=== PATIENT | female | born 1940 | race African-American/Black ===

== ENCOUNTER 2017-01-19 01:26 | Inpatient (IN) | payer OTHER ==
--- NOTE | 2017-01-03 14:36 | History & Physical Pre-Op ---
General Information and HPI MD Statement: I have seen and personally examined MARINA JI and documented this H&P. The patient is a 76 year old F who presented with a patient stated chief complaint of neck pain. Source of Information: patient, old records Exam Limitations: no limitations History of Present Illness: Marina is a 76-year-old female who is complaining of neck pain with associated dizziness and visual changes. She is status post anterior cervical decompression fusion at C5-6 in August,. Marina was doing extremely well until the last several months when she has had progressively worsening neck pain which is worse when laying down and going from a lying to a sitting position. There has been no injury or precipitating event. She denies any radiating arm pain, numbness/tingling, or weakness in her upper extremities. She also denies any dysphagia. She does occasionally experience numbness in her feet but has attributed this to her lumbar surgery. Marina does rate her pain as an intermittent 7/[address] scan shows a solid fusion at C5-6. She does have some minor degenerative changes at the adjacent levels above and below her fusion. Because of Marina's progressively worsening neck pain, she wants nothing more to do with nonsurgical treatment and would like to proceed with an inspection of her fusion with removal of hardware and possible revision anterior cervical decompression fusion at C5-6 with instrumentation and iliac crest bone grafting on 01/19/2017. Allergies/Medications Allergies: Uncoded Allergies: vinegar (elevated blood pressure 01/03/17) Home Med list Aspirin ([place] Aspirin) 81 MG TABLET.DR [address] [facility] (Reported ) Atenolol 25 MG TABLET 1 TAB PO BID BLOOD PRESSURE (Reported) Cetirizine HCl (Zyrtec) 10 MG TABLET 1 TAB PO PRN PRN ALLERGIES (Reported) Enalapril Maleate (Vasotec) 20 MG TAB 1 TAB PO BID BP (Reported) HYDRALAZINE HCL (Hydralazine HCl) 25 MG TAB 1 TAB PO TID PRN IF BP ELEVATES ( Reported) Ranitidine (Zantac) 150 MG TAB 1 TAB PO BID PRN REFLUX (Reported) Compliance With Home Meds: FAIR Past History Medical History Neurological: dizziness, vertigo EENT: NONE Cardiovascular: hypertension Respiratory: NONE Gastrointestinal: GERD, ACID REFLUX Hepatic: NONE Renal: NONE Musculoskeletal: chronic back pain, disk herniation, degen joint disease, osteoarthritis (left hip), spinal stenosis, LUMBAR LAMINECTOMY Psychiatric: NONE Endocrine: DIABETES, DIET CONTROLLED Blood Disorders: NONE Cancer(s): NONE WIRE TEMPERER/Reproductive: HYSTERECTOMY History of MRSA: No History of VRE: No History of CDIFF: No Surgical History Pertinent Surgical History: hysterectomy, laminectomy (L4-5 with local bone 2013), spinal fusion, see hpi, s/p ACDF C5-6 09/02/2015 Past Family/Social History Family History Relations & Conditions if any MOTHER (glaucomaCHF). , Age 96. FATHER (HTNetoh abuseCVA). , Age 96. Psychosocial History Where Do You Live? Home Services at Home None Primary Language: Bolivian Smoking Status: Never Smoked ETOH Use: denies use Illicit Drug Use: denies illicit drug use Other Social History: with 1 daughter and 2 sons Employment History Employment: Retired Profession/Employer: [employer] Review of Systems Review of Systems: Remarkable for the above complaints. Medication List Current Psychiatric Med(s): Tylenol 325 mg 1 po q 4-6 hours prn pain Atenolol 25mg BID Vasoltec 20mg BID Hydralazine 25mg prn elevated BP Zantac 150mg BID prn reflux Calcium 500mg BID ASA 81mg daily Exam & Diagnostic Data Physical Exam: Height: 5'2" Weight: 207lbs. Physical Exam General Appearance Alert, Oriented X3, Cooperative, No Acute Distress Skin No Rashes, No Breakdown, No Significant Lesion HEENT Atraumatic, PERRLA, EOMI, Mucous Membr. moist/pink Neck Supple, No JVD, No thryomegaly, +2 Carotid Pulse wo Bruit Lymphatic Cervical nl Cardiovascular Regular Rate, Normal S1, Normal S2, No Murmurs Lungs Clear to Auscultation, Normal Air Movement Abdomen Normal Bowel Sounds, Soft, No Tenderness, No Masses Neurological Normal Speech, Strength at 5/5 X4 Ext, Normal Tone, Sensation Intact, Reflexes 2+ Extremities No Clubbing, No Cyanosis, No Edema, Normal Pulses, No Tenderness/ Swelling Vascular Normal Pulses Assessment/Plan Assessment/Plan: Assessment: Painful Hardware C5-6 Fusion. Plan: Marina is scheduled for an inspection of fusion mass, removal of hardware , and possible revision of her anterior cervical decompression fusion at C5-6 with instrumentation and iliac crest bone grafting for 01/19/2017. We discussed the procedure in full detail as well as the pre-and postoperative course, follow -up care, and anticipated recovery. We also discussed the risks, alternatives, and benefits. The risks did not exclude , paralysis, infection, bleeding, continued pain, failure of the surgery, need for future surgery, DVT, vascular injury, CSF leak, hoarseness, and dysphasia, etc., and given these risks, she still wishes to proceed. We discussed the fact that there is no guarantee for the success or future success of the surgery but that 100% attempt will be made for full recovery. Marina is scheduled to follow-up with her primary care physician for preoperative clearance. She would like to avoid insulin administration if at all possible. We will certainly check her Accu-Cheks regularly and will administer insulin only if absolutely medically necessary. We will place her on a diabetic diet. Any changes in this patient's plan is based on the patient's outpatient clinical presentation. As Ranked By This Provider Problem List: 1. Type 2 diabetes mellitus 2. Hypertension 3. GERD (gastroesophageal reflux disease) Copies To: JUAN DANIEL REEVES MD Attending MD Review Statement Attending Statement Attending MD Statement: examined this patient, discuss w/resident/PA/CLOAK ROOM ATTENDANT, agreed w/resident/PA/CLOAK ROOM ATTENDANT, reviewed images
[~2017-01-19] VITALS: Ht 157.5 cm; Wt 93.9 kg
[~2017-01-19 01:26] MED LIST: ATENOLOL25 MG PO; HYDRALAZINE HCL25 MG PO; MULTIVITAMIN1 TAB PO; OMEPRAZOLE D/R20 MG PO; PERCOCET 325 MG1 TA2 PO; ST. JOSEPH ASPI81 M1 PO; TYLENOL XSTR500 MG PO; VASOTEC20 MG PO; ZANTAC 150MG150 MG PO; ZYRTEC10 M3 PO
--- NOTE | 2017-01-19 13:20 | Operative Report ---
Operative/Inv Procedure Report Surgery Date: 01/19/17 Name of Procedure: Cervical anterior inspection of fusion mass re-instrumentation with 14 mm 4 hole cervical plate, with fusion by augmentation of perforation of previous graft. Anterior decompression C5-C6 removal of hardware cervical plate C5 6 use of fluoroscopy Pre-Operative Diagnosis: Nonunion loose hardware C5 6 Post-Operative Diagnosis: Same Estimated Blood Loss: less than 50ml Surgeon/Counseling Aide: LEANDRO RAMOS,JUAN DANIEL CRAWLEY Anesthesia: general endotracheal tube Operative/Procedure Note Note: After adequate general anesthesia was achieved the patient was placed in the supine position. Right-sided neck was sterilely prepped and draped. Previous incision was used and entered sharply with the scalpel. Dissection was carried through the platysma and medial to the neurovascular bundle lateral to the visceral structures to the midline spine. Deep retractors were placed. The fusion mass was inspected the plate was found to be loose. The cage was exposed. Cage was inspected and found to be loose. The lateral aspects of the disc were entered with the high-speed bur creating a channel to the posterior canal for decompression. Posterior aspect was addressed with the Kerrison. The cage was loose. Could not simply be removed directly without a high risk of the need for the high-speed bur. The cage was left in place and and was perforated with the pencil point bur and nearly the bone graft to stimulate fusion. An anterior plate was then reapplied to augment the fusion. The previous screw holes were packed with bone wax. Blood tended to seep at the old screw holes a deep culture was taken and sent for pathology to rule out infection. Care was taken to protect the screw holes with bone wax which controlled bleeding. After removal of the plate and packing of the bone wax was irrigated with thrombin and there is no evidence of continued bleeding. The wound was copiously irrigated prior to closure and a closure was performed of the platysma with absorbable suture the skin was closed with nylon. Prior to closure the entire construct was checked with fluoroscopy for the patient's body habitus prohibited the ability to obtain a lateral of the plate. Removal of the plate likely solve the problem of pain from regimen anteriorly seen on the preoperative x-rays. After posterior sterile dressings patient was taken to the recovery room in a cervical collar
--- NOTE | 2017-01-19 13:26 | RADIOLOGY REPORT ---
EXAMINATION: XR CERVICAL SPINE CLINICAL INFORMATION: Anterior cervical discectomy and fusion at C5-C6 performed in operating room. COMPARISON: 09/02/2015 TECHNIQUE: Intraoperative C-arm fluoroscopic imaging of cervical spine was utilized by Dr. Hooper. 3 spot fluoroscopy images of the cervical spine are submitted into the electronic picture archive. Fluoroscopy time was 0.7 minutes. Dose was 15.3 mGy FINDINGS: The patient is intubated within the operating room. On the lateral views, the cervical vertebra below the C4 level are suboptimally visualized due to the patient's overlying shoulders. The final AP view of the cervical spine shows surgical changes of discectomy and anterior fusion at C5-C6. The hardware is suboptimally evaluated on this projection. IMPRESSION: C-arm fluoroscopic imaging support was provided to the operating room.
[2017-01-19] MEDS ORDERED: TYLENOL325 M1 PO (14:01)
[2017-01-19] MEDS ORDERED: CALCIUM CARBON500 M2 PO (14:01)
[2017-01-19] MEDS ORDERED: ONE DAILY MULT1 EAC2 PO (14:01)
[2017-01-19] MEDS ORDERED: MILK OF MA400 MG/52 PO (14:01)
[2017-01-19] MEDS ORDERED: BISAC-EVAC10 M1 PR (14:01)
[2017-01-19] MEDS ORDERED: PERCOCET 5-3251 EACH PO (14:01)
[2017-01-19] MEDS ORDERED: VITAMIN D31000 UNI2 PO (14:01)
[2017-01-19] MEDS ORDERED: DOCUSATE SODIU100 M3 PO (14:01)
--- NOTE | 2017-01-19 14:03 | Patient Discharge Instructions ---
Acute Coronary Syndrome Inclusion Criteria At DC or during hospital stay patient has or had the following: ACS DIAGNOSIS No Discharge Core Measures Meds if any: Prescribed or Continued at Discharge Meds if any: NOT Prescribed or Continued at Discharge Congestive Heart Failure Inclusion Criteria At DC or during hospital stay patient has or had the following: CHF DIAGNOSIS No Discharge Core Measures Meds if any: Prescribed or Continued at Discharge Meds if any: NOT Prescribed or Continued at Discharge Cerebrovascular accident Inclusion Criteria At DC or during hospital stay patient has or had the following: CVA/TIA Diagnosis No Discharge Core Measures Meds if any: Prescribed or Continued at Discharge Meds if any: NOT Prescribed or Continued at Discharge Venous thromboembolism Inclusion Criteria VTE Diagnosis No VTE Type NONE VTE Confirmed by (Test) NONE Discharge Core Measures - Per Current guidelines, there needs to be overlap - treatment for the first 5 days of Warfarin therapy. - If discharged on Warfarin prior to 5 days of - overlap therapy, the patient will need to be - assessed for post discharge needs including - *Post discharge parental anticoagulation - *Warfarin and/or parental anticoagulation education - *Follow up date to check INR post discharge At least 5 days overlap therapy as Inpatient No Meds if any: Prescribed or Continued at Discharge Note: Overlap Therapy is Warfarin and Anticoagulant Meds if any: NOT Prescribed or Continued at Discharge
--- NOTE | 2017-01-19 16:04 | PN- Orthopedic ---
Subjective Subjective: Post op check Pt has been nauseated post op requiring zofran, decadron and reglan. She seems to be very sensitive to narcotics and antiemetics as she falls asleep quickly with meds however awakens and complains of 7/10 pain. Currently sleepy but awakens and answers all questions appropriately Currently states she has pain 7/10, but then fell back to sleep before I left her bedside 0.2mg IV dilaudid given in PACU puts her to sleep No nausea currently Objective Vital Signs and I&Os Intake & Output 01/19 1600 01/19 0800 01/19 0000 01/18 1600 01/18 0800 01/18 0000 Intake Total Output Total Balance Patient 207 lb Weight HR 67 regular RR 15 Sat 98% 3L NC bp 124/70 No newton Physical Exam: General: sleepy but awakens Chest: clear anteriorly bilaterally, RRR Abd: soft, positive bs Ext: warm, no edema, no calf tenderness Wound: dressed, dry, ice pack in place Neuro: positive sensate all 4 ext, 5/5 SABRINA all 4 ext, no discernible deficits Assessment/Plan Assessment/Plan 76yo female s/p ACD revision C 12/17 Pain management - pt is very sensitive to narcotics po percocet for pain, morphine for breakthrough abx for 24 hours post op Core Measures/Miscellaneous Venous Thromboembolism VTE Risk Factors: Age > 40, Surgery VTE Contraindications: No Contraindications VTE Diagnosis: No Beta Noel Is Beta Noel a Home Med? Yes If Yes, Was This Ordered Today? Yes Antibiotics Is Patient on Antibiotics? Yes If Yes: prophylaxis
[2017-01-19 17:41] VITALS: BP 130/76
--- NOTE | 2017-01-19 18:05 | NUR ---
PACU ADMISSION NOTE PT ARRIVED AT THIS TIME, A/O X 3, ON 3L NC, STATES 6-7/10 PAIN TO NECK AREA, REFUSING PAIN MEDS AT THIS TIME, DENIES NAUSEA. DRESSING TO RIGHT NECK CD+I, DENIES SOB, DENIES CP, VSS, ALPS APPLIED. IVF INFUSING ORDERED WILL CONTINUE TO MONITOR
--- NOTE | 2017-01-19 18:27 | Cons- Medical ---
ANDREWS FRANKS 01/19/17 1810: General Information and HPI Consulting Request Date of Consult: 01/19/17 Requested By: PAUL HOOPER MD Reason for Consult: hypertension Source of Information: patient, old records Exam Limitations: no limitations History of Present Illness: 75 year old woman with hx of diet-controlled diabetes, GERD, and hypertension, severe lumbar stenosis and spondylolisthesis at L4-L5 s/p lumbar laminectomy, diskectomy L4-L5 on the left and L4-5 intertransverse process fusion underwent cervical anterior fusion, anterior decompression of C5-C6 and removal of hardware cervical plate C5- [address] Paul Hooper today. Medicine team has been consulted for management of hypertension. Patient is doing fine. She complains of some postoperative nausea and has been receiving Zofran and Reglan. Pain at this time is 8 /10. At home she is on Vasotec 20 mg twice a day and hydralazine 25 mg 3 times a day. She took her morning medications before the surgery today. Vital stable with a blood pressure 130/76, pulse 73, respirations 16, saturating 96% on 3 L nasal cannula. Allergies/Medications Allergies: Uncoded Allergies: vinegar (elevated blood pressure 01/03/17) Home Med List: Acetaminophen (Tylenol) 325 MG TABLET 650 MG PO Q4P PRN TEMP > 101.5 Aspirin ([place] Aspirin) 81 MG TABLET.DR 1 TAB PO D [facility] (Reported ) Atenolol 25 MG TABLET 1 TAB PO BID BLOOD PRESSURE (Reported) Bisacodyl (Bisac-Evac) 10 MG SUPP.RECT 10 MG AK DAILY NEEDED PRN CONSTIPATION Calcium Carbonate 500 MG CALCIUM (1,250 MG) TABLET 600 MG PO BID [facility] Cetirizine HCl (Zyrtec) 10 MG TABLET 1 TAB PO PRN PRN ALLERGIES (Reported) Cholecalciferol (Vitamin D3) 1,000 UNIT TABLET 1,000 IU PO DAILY [facility] Docusate Sodium 100 MG CAPSULE 100 MG PO BID CONSTIPATION Enalapril Maleate (Vasotec) 20 MG TAB 1 TAB PO BID BP (Reported) HYDRALAZINE HCL (Hydralazine HCl) 25 MG TAB 1 TAB PO TID PRN IF BP ELEVATES ( Reported) Magnesium Hydroxide (Milk Of Magnesia) 400 MG/5 ML ORAL.SUSP 30 ML PO AT BEDTIME PRN CONST Multivitamin (One Daily Multivitamin) 1 EACH TABLET 1 TAB PO DAILY [facility] Oxycodone HCl/Acetaminophen (Percocet 5-325 MG Tablet) 5 MG-325 MG TABLET 2 TAB PO Q4P PRN PAIN SCALE 7-10 (SEVERE) 1-2 TABS PO Q 4-6 HRS PRN PAIN Ranitidine (Zantac) 150 MG TAB 1 TAB PO BID PRN REFLUX (Reported) Review of Systems Review of Systems Constitutional: Reports: weakness. EENTM: Reports: no symptoms. Cardiovascular: Reports: no symptoms. Respiratory: Reports: no symptoms. GI: Reports: no symptoms. Genitourinary: Reports: no symptoms. Musculoskeletal: Reports: neck pain. Skin: Reports: no symptoms. Neurological/Psychological: Reports: no symptoms. Past History Medical History Neurological: dizziness, vertigo EENT: NONE Cardiovascular: hypertension Respiratory: NONE Gastrointestinal: GERD, ACID REFLUX Hepatic: NONE Renal: NONE Musculoskeletal: chronic back pain, disk herniation, degen joint disease, osteoarthritis (left hip), spinal stenosis, LUMBAR LAMINECTOMY Psychiatric: NONE Endocrine: DIABETES, DIET CONTROLLED Blood Disorders: NONE Cancer(s): NONE REMOTE CODERS/Reproductive: HYSTERECTOMY Surgical History Surgical History: hysterectomy, laminectomy (L4-5 with local bone 05/2014), spinal fusion, see hpi s/p ACDF C5-6 09/02/2015 Family History Relations & Conditions If Any: MOTHER (glaucomaCHF). , Age 96. FATHER (HTNetoh abuseCVA). , Age 96. Psychosocial History Where Do You Live? Home Services at Home: None Primary Language: Spanish Smoking Status: Never Smoked ETOH Use: denies use Illicit Drug Use: denies illicit drug use Other Social History: with 1 daughter and 2 sons Employment History Employment: Retired Profession/Employer: [employer] Exam & Diagnostic Data Last 24 Hrs of Vital Signs/I&O Vital Signs Date Time Temp Pulse Resp B/P B/P Pulse O2 O2 Flow FiO2 Mean Ox Delivery Rate 01/19 1741 97.5 73 16 130/76 96 Nasal 3.0L Cannula Physical Exam General Appearance: well developed/nourished, no apparent distress, alert, awake , mild distress, obese Head: atraumatic, normal appearance Eyes: Bilateral: normal appearance, PERRL, EOMI. Ears, Nose, Throat: normal pharynx, nasal cannula Neck: dressings clean and intact on the anterior surface of the neck. Respiratory: normal breath sounds, chest non-tender, quiet respiration, lungs clear Cardiovascular: regular rate/rhythm Peripheral Pulses: 2+ radial (R), 2+ radial (L) Gastrointestinal: normal bowel sounds, soft, non-tender Extremities: normal inspection, no edema Last 24 Hrs of Labs/Mani: rr Assessment/Plan Assessment/Plan 75 year old woman with hx of diet-controlled diabetes, GERD, and hypertension, severe lumbar stenosis and spondylolisthesis at L4-L5 s/p lumbar laminectomy, diskectomy L4-L5 on the left and L4-5 intertransverse process fusion underwent cervical anterior fusion, anterior decompression of C5-C6 and removal of hardware cervical plate C5- [address] Paul Hooper today. Vital stable with a blood pressure 130/76, pulse 73, respirations 16, saturating 96% on 3 L nasal cannula. Labs from the morning reviewed. Assessment * Status post anterior cervical decompression and revision of C5-C6 * Hypertension * Diet-controlled diabetes * GERD * Severe lumbar stenosis Plan * Patient's blood pressure on the low side. Please hold on on all BP meds till tomorrow morning. Please confirm BP meds before starting them. * Please hold off on Aspirin till am. * Check CBC and BEP now and replete electrolytes as needed. Watch for postop anemia. * Will check troponins and EKG post operatively * Accu-Cheks 2 times a day * Continue IV fluids RL @100cc/hr * Consistent carbohydrate diet when patient begins diet * Continue antibiotics 24 postoperatively * Bowel regime to prevent constipation * IV Zofran for nausea * Pain management by primary team * DVT prophylaxis Alps * Full code We will continue to follow Problem List: 1. GERD (gastroesophageal reflux disease) 2. Hypertension 3. Type 2 diabetes mellitus 4. S/P cervical spinal fusion Consult Acknowledgment - Thank you for your consult request. MELCHOR RAMOS, [facility] 01/19/172004: Assessment/Plan Consult Acknowledgment - Thank you for your consult request. Attending Review Statement Attending Statement Attending Statement: examined this patient, discuss w/resident/PA/PETROLEUM ENGINEERING TEACHER, agreed w/resident/PA/PETROLEUM ENGINEERING TEACHER Attending Assessment/Plan: 75 yo morbidly obese F with h/o HTN, diet controlled diabetes, GERD, seasonal allergies, lumbar laminectomy and fusion L4-5, ACD fusion C5-6 (Aug 2015) underwent reinstrumentation with fusion by augmentation of perforation of previous graft and anterior decompression C5-C6 removal of hardware cervical plate. Consult placed for management of hypertension. Patient c/o nausea but was able to tolerate her diet. Focal pain around surgical site. Denies CP, dyspnea, palpitations or lightheadedness. She denies previous cardiac history. She did have c/o palpitations, underwent 24 hour Holter that was negative, no arrhythmias noted. Also, had a stress test that was normal. Vitals stable, except for a slight drop in BP 96/58 --> 122/72. Examination unremarkable. Labs: WBC 13.4, H/H 11.4/35.1, trop neg. EKG: SR, LVH with nonspecific T wave changes. 1. Hypertension. Patient reports taking atenolol 25 BID and Vasotec 20 BID, she uses Hydralazine 25 mg only of SBP > 150. We will continue atenolol and vasotec from AM. Resume aspirin in AM. Counseled about importance of compliance with medications. Obtain post-op EKG. 2. Diet controlled diabetes. She had been on OHA previously but discontinued due to adverse reactions, not on meds anymore. She refuses to take insulin SS while inpatient. We will monitor her sugars BID. Check HbA1c. 3. GERD. Ct. Famotidine. 4. Pain management per primary team. Incentive spirometry. DVT ppx Alps. Full code.
[2017-01-19 19:10] VITALS: BP 96/58
[2017-01-19 19:39] VITALS: BP 122/72
[2017-01-19 21:00] VITALS: BP 130/66
[2017-01-19 21:20] LABS: ABSOLUTE BASOPHIL COUNT 0 /CUMM (0.0-0.2); ABSOLUTE EOSINOPHIL COUNT 0 /CUMM (0.0-0.7); ABSOLUTE GRANULOCYTE CT 12.3 /CUMM (1.4-6.5); ABSOLUTE MONOCYTE COUNT 0.1 /CUMM (0.10-0.60); BASOPHIL % 0.1 % (0.0-2.0); EOSINOPHIL % 0 % (0-5); HEMATOCRIT 35.1 % (37-47); MEAN CORPUSCULAR HGB 28.7 PG (27.0-31.0); MEAN CORPUSCULAR HGB CONC 32.5 G/DL (33.0-37.0); MEAN CORPUSCULAR VOLUME 88.3 FL (81.0-99.0); MEAN PLATELET VOLUME 10.7 FL (7.4-10.4); PLATELET COUNT 185 /CUMM (130-400); RBC DISTRIBUTION WIDTH 14.3 % (11.5-14.5); RED BLOOD CELL CT 3.97 /CUMM (4.20-5.40); WHITE BLOOD CELL COUNT 13.4 /CUMM (4.8-10.8)
[2017-01-19 21:28] LABS: GRANULOCYTE % 92.1 % (42.2-75.2)
[2017-01-20 00:59] VITALS: BP 126/70
[2017-01-20 05:00] VITALS: BP 130/64
--- NOTE | 2017-01-20 07:43 | PN- Medicine Consult ---
ANDREWS FRANKS 01/20/17 0739: Assessment/Plan Assessment/Plan Assessment: 75 year old woman with hx of diet-controlled diabetes, GERD, and hypertension, severe lumbar stenosis and spondylolisthesis at L4-L5 s/p lumbar laminectomy, diskectomy L4-L5 on the left and L4-5 intertransverse process fusion underwent cervical anterior fusion, anterior decompression of C5-C6 and removal of hardware cervical plate C5- [address] Paul Hooper on 01/20/17. Medicine team has been consulted for management of hypertension. Vitals stable overnight ,blood pressure well controlled at 130/64 Labs: WBC 13.4, H/H 11.4/35.1, trop neg. EKG: SR, LVH with nonspecific T wave changes. Assessment * Status post anterior cervical decompression and revision of C5-C6, POD#1 * Hypertension * Diet-controlled diabetes * GERD * Severe lumbar stenosis Plan: * Patient's blood pressure has been stable over night. She takes atenolol 25 BID and Vasotec 20 BID, she uses Hydralazine 25 mg only of SBP > 150. Restart the medications today. * Can resume Aspirin from today. * Labs reviewed. Has a slight white count which could be reactive, on antibiotics. * H/H 11.4/35.1, likely postoperative anemia. * Troponins and EKGs unremarkable. * Continue ncentive spirometry. * Fingersticks 162, 246. Continue Accu-Cheks twice a day * Continue IV fluids RL @100cc/hr. * Consistent carbohydrate diet when patient begins eating * Continue antibiotics 24 postoperatively * Bowel regime to prevent constipation * IV Zofran for nausea * Pain management by primary team * DVT prophylaxis Alps * Full code We will continue to follow Problem List: 1. S/P cervical spinal fusion 2. GERD (gastroesophageal reflux disease) 3. Hypertension Subjective Subjective: Patient is doing good. BP well controlled. All home medications were resumed in am. Will be discharged if Ok with orthopedics. Review of Systems Constitutional: Reports: no symptoms. EENTM: Reports: no symptoms. Cardiovascular: Reports: no symptoms. Respiratory: Reports: no symptoms. Gastrointestinal: Reports: no symptoms. Genitourinary: Reports: no symptoms. Musculoskeletal: Reports: no symptoms. Skin: Reports: no symptoms. Objective Last 24 Hrs of Vital Signs/I&O Vital Signs Date Time Temp Pulse Resp B/P B/P Pulse O2 O2 Flow FiO2 Mean Ox Delivery Rate 01/20 1052 Room Air 01/20 0830 98.4 93 16 158/84 95 Room Air 01/20 0818 93 158/84 01/20 0818 93 158/84 01/20 0500 98.4 83 18 130/64 95 Room Air 01/20 0059 98.3 90 20 126/70 96 Nasal Cannula 01/20 0000 Nasal 2.0L Cannula 01/19 2100 98.1 90 16 130/66 95 Nasal 2.0L Cannula 01/19 1939 68 122/72 01/19 1910 97.6 62 16 96/58 95 Nasal 3.0L Cannula 01/19 1741 97.5 73 16 130/76 96 Nasal 3.0L Cannula 01/19 1600 Nasal 3.0L Cannula Intake & Output 01/20 1600 01/20 0800 01/20 0000 Intake Total 1040 Output Total 1750 850 Balance -710 -850 Intake, IV 800 Intake, Oral 240 Number 0 Bowel Movements Output, Urine 1750 850 Patient 93.894 kg Weight Physical Exam General Appearance: well developed/nourished, no apparent distress, alert, awake , comfortable Head: atraumatic, normal appearance Ears, Nose, Throat: normal pharynx, dressings intact Neck: normal inspection, supple Cardiovascular: regular rate/rhythm Respiratory: normal breath sounds Abdomen: normal bowel sounds Back: normal inspection Extremities: normal inspection, no edema Current Medications: Current Medications Sig/Swathi Start time Last Medication Dose Route Stop Time Status Admin Acetaminophen 650 MG Q4P PRN 01/19 1345 DCD 01/20 PO 1143 Aspirin Buffered 81 MG DAILY 01/20 1000 DCD 01/20 PO 0946 Aspirin Buffered 81 MG DAILY 01/19 1345 DC PO Atenolol 25 MG BID 01/19 2200 CAN PO Atenolol 25 MG BID 01/19 220 DCD 01/20 PO 0818 Bisacodyl 10 MG DAILY NEEDED PRN 01/19 1345 DCD TN Calcium 600 MG BID 01/19 2200 DCD 01/20 PO 0946 Cefazolin Sodium 1,000 MG IQ8 01/19 1600 DC 01/20 IV 01/20 0801 0817 Cefazolin Sodium 2,000 MG ONCE 01/19 0000 DC IV 01/19 2359 Cholecalciferol 1,000 IU DAILY 01/20 1000 DCD 01/20 PO 0946 Docusate Sodium 100 MG BID 01/19 2200 DCD 01/20 PO 0946 Famotidine 20 MG BID 01/19 2200 DCD 01/19 PO 2053 Lactated Ringer's 1,000 ML Q10H 01/19 1400 DCD 01/20 IV 0223 Lisinopril 20 MG BID 01/20 1000 DCD 01/20 PO 0818 Lisinopril 20 MG BID 01/19 2200 CAN PO Loratadine 10 MG DAILY 01/20 1000 DCD PO Magnesium Hydroxide 30 ML AT BEDTIME PRN 01/19 1400 DCD PO Morphine Sulfate 1 MG Q3P PRN 01/19 1345 DCD IV Multivitamins 1 TAB DAILY 01/20 1000 DCD 01/20 PO 0947 Ondansetron HCl 4 MG Q6P PRN 01/19 1345 DCD IV Oxycodone/ 1 TAB Q4P PRN 01/19 1345 DCD Acetaminophen PO Oxycodone/ 2 TAB Q4P PRN 01/19 1345 DCD Acetaminophen PO Patient Medication 1 ED .STK-MED ONE 01/20 1410 DC Teaching ED 01/20 1411 Trimethobenzamide HCl 200 MG Q6P PRN 01/19 1345 DCD IM Results Last 24 Hrs Lab/Mani Results: Laboratory Tests 01/19/172101: Anion Gap 10, Estimated GFR > 60, BUN/Creatinine Ratio 26.7 H, Hemoglobin A1c 7.6 H, Troponin I < 0.01, CBC w Diff NO MAN DIFF REQ, RBC 3.97 L, MCV 88.3, MCH 28.7, RDW 14.3, MPV 10.7 H, Gran % 92.1 H, Lymphocytes % 7.4 L, Monocytes % 0.4 L, Eosinophils % 0, Basophils % 0.1, Absolute Granulocytes 12.3 H, Absolute Lymphocytes 1.0 L, Absolute Monocytes 0.1 L, Absolute Eosinophils 0, Absolute Basophils 0, PUBS MCHC 32.5 L ROBBI SESAY 01/20/17 1026: Attending MD Review Statement Attending Sign Off Attending Cosign Statement: I have: examined this patient, reviewed avalbl EMR data, personally reviewd images, discussd w/resident/PA/ROLL FILLER, discussed mgmt plan w/brenda, discussed mgmt plan w/CM, discussed mgmt plan w/pt, agreed w/resident/PA/ROLL FILLER. Other Findings: 76 o/f with pmh as above is POD#1 cervical stenosis, patient is doing well, bp stable, pain controlled. Resume home meds at discharge. Patient stable for discharge from medical standpoint.
[2017-01-20 08:30] VITALS: BP 158/84
--- NOTE | 2017-01-20 14:28 | PN- Orthopedic ---
Subjective Subjective: Patient is c/o expected incisional discomfort. No preop symptoms. No dysphagia, no sore throat or hoarseness. She is urinating without difficulty and ambulating without assistance. She is without nausea or vomiting. She is tolerating by mouth diet and pain medications. She is eager for discharge. Review of Systems: Remarkable for the above complaints. Objective Vital Signs and I&Os Vital Signs Date Time Temp Pulse Resp B/P B/P Pulse O2 O2 Flow FiO2 Mean Ox Delivery Rate 01/20 1052 Room Air 01/20 0830 98.4 93 16 158/84 95 Room Air 01/20 0818 93 158/84 01/20 0818 93 158/84 01/20 0500 98.4 83 18 130/64 95 Room Air 01/20 0059 98.3 90 20 126/70 96 Nasal Cannula 01/20 0000 Nasal 2.0L Cannula 01/19 2100 98.1 90 16 130/66 95 Nasal 2.0L Cannula 01/19 1939 68 122/72 01/19 1910 97.6 62 16 96/58 95 Nasal 3.0L Cannula 01/19 1741 97.5 73 16 130/76 96 Nasal 3.0L Cannula 01/19 1600 Nasal 3.0L Cannula Intake & Output 01/20 1600 01/20 0800 01/20 0000 01/19 1600 01/19 0800 01/19 0000 Intake Total 1040 Output Total 1750 850 Balance -710 -850 Intake, IV 800 Intake, Oral 240 Number 0 Bowel Movements Output, Urine 1750 850 Patient 207 lb Weight Physical Exam General Appearance: well developed/nourished, no apparent distress, alert, awake Head: atraumatic, normal appearance Neck: Incisin C/D/I. Dressing changed. Respiratory: normal breath sounds, chest non-tender, no respiratory distress Cardiovascular: regular rate/rhythm Abdomen: normal bowel sounds, soft, non-tender Neurologic/Psychiatric: Neurovascularly intact with no new or worsening gross motor or sensory loss. Skin: intact, normal color, warm/dry Assessment/Plan Assessment/Plan Assessment: Marina is here status post revision anterior cervical decompression fusion with removal of hardware at C5 6. Plan: Marina has been discharged in stable condition. She is going to continue with her by mouth Percocet and/or Tylenol when necessary for pain. She'll continue with ice as needed. We discussed the do's and don'ts and postoperative expectations. Discharge instruction were given. We will follow up as an outpatient. Problem List: 1. Type 2 diabetes mellitus 2. Hypertension 3. GERD (gastroesophageal reflux disease) 4. S/P cervical spinal fusion Core Measures/Miscellaneous Venous Thromboembolism VTE Risk Factors: Age > 40, Surgery VTE Contraindications: No Contraindications VTE Diagnosis: No Beta Noel Is Beta Noel a Home Med? Yes If Yes, Was This Ordered Today? Yes Antibiotics Is Patient on Antibiotics? Yes If Yes: prophylaxis Attending MD Review Statement Attending Statement Attending MD Statement: examined this patient, discuss w/resident/PA/COAL PICKER, agreed w/resident/PA/COAL PICKER
== END 2017-01-20 13:44 | DRG 473 ==
LOC: SDA 01:26 → ENRESERV 14:45 → ENTRNSPT 17:01 → 2NA 17:26 → CMPTRNSPT 17:57 → ENPENDDIS 01-20 13:15 → 2NA 01-20 13:44
PROVIDERS: Student in an Organized Health Care Education/Training Program; ADMIT Orthopaedic Surgery Orthopaedic Surgery of the Spine
PROC: 0RP104Z Removal of Internal Fixation Device from Cervical Vertebral Joint, Open Approach (ICD-10-PCS; principal; 2017-01-19)
PROC: 0RG10Z0 (ICD-10-PCS; principal; 2017-01-19)
DX: M96.0 Pseudarthrosis after fusion or arthrodesis (principal); E11.9 Type 2 diabetes mellitus without complications; I10 Essential (primary) hypertension; Y83.4 Other reconstructive surgery as the cause of abnormal reaction of the patient, or of later complication, without mention of misadventure at the time of the procedure; Y92.009 Unspecified place in unspecified non-institutional (private) residence as the place of occurrence of the external cause; E66.9 Obesity, unspecified; Z68.39 Body mass index [BMI] 39.0-39.9, adult
CPT/HCPCS: 2NAP; 87070; 87075; 36415; 72040; 82436; 93005; 93010; 97116-GO; 97161-GP; 97535-GO; J0131; J0690; J2405; J2765; J3250; J3490; J7120